=== PATIENT | female | born 1975 | race Caucasian/White ===

== ENCOUNTER 2017-05-13 16:11 | Emergency (ER) | payer SELFPAY ==
[2017-05-13 16:16] VITALS: BP 171/91; BMI 30.2
--- NOTE | 2017-05-13 19:15 | DR.GENAD ---
HPI - PCP Primary Care Physician: BERKLEY BACK - Complaint/Symptoms Chief Complaint:: PT C/O SPASMS TO HER NECK THAT RADIATES TO HER CHEST AND HER ARMS AND NUMBNESS TO HER HANDS FOR THE PAST 2 WEEKS. - Nurses notes reviewed Nurses Notes Review: Yes - Source History Provided: Patient - Mode of Arrival Mode of Arrival: Ambulatory - Timing Onset of Chief Complaint: 04/29/17 PMH - PMH Past Medical History: Yes Past Medical History: Anxiety, Hypertension Past Medical History Comment: Fibromyalgia Past Surgical History: Yes Surgical History: Hysterectomy - Family History History of Family Medical Conditions: No - Social History Does patient currently use any type of tobacco product: Yes Have you used tobacco products in the last 12 months: Yes Type of Tobacco Use: Cigarettes How many years tobacco product used: 20 Does any household member use tobacco: No Alcohol Use: None Do you use any recreational Drugs:: No Lives With: Family Lives Where: Home - infectious screening In the last 2 months have you had wt loss of >10#?: NO Have you had fever, night sweats or hemotysis?: No Have you traveled outside the country in the last 6 months?: No Isolation: Standard ROS - Review of Systems Musculoskeletal: No Symptoms Reported PE - Vital Signs Vitals: Temperature 98.6 F Pulse Rate 80 Respiratory Rate 18 Blood Pressure 171/91 O2 Sat by Pulse Oximetry 100 ROR - Labs Reviewed Laboratory: TSH 3rd Generation Cancelled 05/13/17 19:39 - Discharge Plan Disposition: [facility]BS After Triage Condition: Stable - Follow ups/Referrals Follow ups/Referrals: NFD,None [Primary Care Provider] - 3 days - Instructions
== END 2017-05-13 19:46 | disposition left against medical advice (07) ==
LOC: ER 16:33
DX: M54.2 Cervicalgia (principal)
CPT/HCPCS: 36415; 99281